=== PATIENT | female | born 1985 | race Caucasian/White ===

== ENCOUNTER 2017-07-09 20:13 | Inpatient (IN) | payer OTHER ==
[2017-07-09] VITALS (7 sets, daily range): BP systolic 118–143; BP diastolic 68–77; PULSE 83–98; TEMP 97.8–97.9
[~2017-07-09] VITALS: Ht 170.2 cm; Wt 64.5 kg
[~2017-07-09 20:13] MED LIST: MOTRIN 600600 MG/TAB PO; PERCOCET 325 MG1 TA2 PO; PRENATAL MVI PO
[2017-07-09 22:15] LABS: BASO % 0.2 % (0.0-2.0); EOS % 0.2 % (0-4.0); GRAN # 9.1 (1.4-6.5); GRAN % 77.6 % (42.2-75.2); HEMOGLOBIN 12.2 g/dl (12.5-16.0); LYMPH # 1.6 (1.2-3.4); LYMPH % 13.6 % (20.0-51.0); MEAN CELL VOLUME 88 fl (80.0-100.0); MEAN CORPUSCULAR HEMOGLOBIN 32 pg (27.0-31.0); MEAN CORPUSCULAR HGB CONC 36 g/dl (33.0-37.0); MONO # 0.9 (0.1-0.6); MONO % 7.9 % (1.7-9.3); PLATELET COUNT 167 K/mm3 (130-400); RED BLOOD COUNT 3.87 M/mm3 (4.10-5.30); REDCELL DISTRIBUTION WIDTH-CV 12.9 % (11.5-14.5)
[2017-07-09 22:16] LABS: HEMATOCRIT 34.1 % (37.0-47.0)
[2017-07-10 00:33] VITALS: BP 115/65; PULSE 85; TEMP 98.5
[2017-07-10 05:45] VITALS: BP 114/72; PULSE 101; TEMP 97.9
[2017-07-10 06:56] LABS: HEMATOCRIT 28.9 % (37.0-47.0); HEMOGLOBIN 9.9 g/dl (12.5-16.0)
[2017-07-10 08:30] VITALS: BP 112/66; PULSE 102; TEMP 97.8
[2017-07-10 12:25] VITALS: BP 110/62; PULSE 96; TEMP 98
[2017-07-10 17:00] VITALS: BP 105/63; PULSE 98; TEMP 98.5
[2017-07-10 21:45] VITALS: BP 115/75; PULSE 100; TEMP 98.9
[2017-07-11 07:30] VITALS: BP 117/70; PULSE 82
[2017-07-11] MEDS ORDERED: IBU600 MG PO (09:17)
== END 2017-07-11 12:40 | disposition home or self-care (01) | DRG 775 ==
LOC: LDRO 20:13 → LDR 21:10 → OB 07-10 01:00
PROVIDERS: Obstetrics & Gynecology
PROC: 10E0XZZ Delivery of Products of Conception, External Approach (ICD-10-PCS; principal; 2017-07-09)
PROC: 0KQM0ZZ Repair Perineum Muscle, Open Approach (ICD-10-PCS; 2017-07-09)
DX: O34.211 Maternal care for low transverse scar from previous cesarean delivery (principal); Z3A.38 38 weeks gestation of pregnancy; Z37.0 Single live birth; O70.1 Second degree perineal laceration during delivery; Z23 Encounter for immunization
CPT/HCPCS: J2590; J7120

== ENCOUNTER 2020-01-13 03:48 | Inpatient (IN) | payer OTHER ==
[~2020-01-13] VITALS: Ht 172.7 cm; Wt 69.1 kg
[2020-01-13] VITALS (16 sets, daily range): BP systolic 111–154; BP diastolic 64–89; PULSE 71–96; TEMP 97.8–98.9
[~2020-01-13 03:48] MED LIST changes: +IBU600 MG PO
--- NOTE | 2020-01-13 03:55 | NUR ---
Pt arrived on unit ambulatory and with complaints of contractions every 6-10mins with a history of fast labor. Pt denies any leaking of fluid or vaginal bleeding and reports normal movement. EFM and toco monitors started. SVE by this RN . Vital signs WNL. Information reviewed with Dr. Bhardwaj. Orders for labor admission received. Plan of care reviewed with pt and at the bedside.
[2020-01-13 05:36] LABS: BASO % 0.1 % (0.0-2.0); EOS % 0.5 % (0-4.0); GRAN % 71.2 % (42.2-75.2); HEMOGLOBIN 12.4 g/dl (12.5-16.0); LYMPH # 1.7 (1.2-3.4); LYMPH % 19.6 % (20.0-51.0); MEAN CELL VOLUME 92 fl (80.0-100.0); MEAN CORPUSCULAR HEMOGLOBIN 31 pg (27.0-31.0); MEAN CORPUSCULAR HGB CONC 34 g/dl (33.0-37.0); MEAN PLATELET VOLUME 12.3 fl (7.4-10.4); MONO # 0.7 (0.1-0.6); PLATELET COUNT 144 K/mm3 (130-400); RED BLOOD COUNT 3.95 M/mm3 (4.10-5.30); REDCELL DISTRIBUTION WIDTH-CV 12.8 % (11.5-14.5)
[2020-01-13 05:40] LABS: HEMATOCRIT 36.2 % (37.0-47.0)
--- NOTE | 2020-01-13 06:20 | NUR ---
This RN received report from Dave. Patient updated on plan of care and has no needs at this time. 0838: Patient off monitor to ambulate at this time. 0712: Patient back on monitor. 0720: Dr. Gil at bedside assessing patient and FHR strip. SVE per physician /-1 and AROM at this time with clear fluid noted. 0753: Patient off monitor to void. 0845: Dr. Gil at bedside and SVE per physician /-1. Patient off monitor to void. 0854: Patient on toilet and feeling light headed and a lot of pressure. Patient assisted back to bed. Dr. Gil at nurses station and notified. 0856: SVE-/+1 and patient prepped for vaginal delivery. 0859: Pericare done and patient begins to push per Dr. Gils orders. 0901: Spontaneous vaginal delivery of viable male-head followed by body. to patients abdomen and E.Channing RN assumes care of infant. Cord clamped by physician and cut by FOB. Cord blood obtained. 0903: Spontaneous delivery of placenta and pitocin bolus started at 333mU. Dr. Gil injects lidocaine and repairs laceration. Fundal massage done/firm/bleeding WNL. Patient repositioned, ice pack to perineum, and plan of care discussed.
--- NOTE | 2020-01-13 11:40 | NUR ---
Patient ambulates to bathroom with standby assist. Patient voids, pericare done, new gown/underwear/pad on. Patient becomes light headed and assisted into wheel chair. Patient to new room and assisted into bed. Oriented to new room and plan of care discussed.
[2020-01-14 00:30] VITALS: BP 108/64; PULSE 90; TEMP 98.7
[2020-01-14 08:13] VITALS: BP 104/68; PULSE 68; TEMP 98.1
--- NOTE | 2020-01-14 09:31 | NUR ---
Initial visit; Family thanked Business Operations Coordinator for offering congratulations and God's blessings for the of their son. Business Operations Coordinator thanked family for choosing [facility].
[2020-01-14 15:30] VITALS: BP 102/68; PULSE 76; TEMP 98.1
== END 2020-01-14 19:00 | disposition home or self-care (01) | DRG 807 ==
LOC: LDRO 03:48 → LDR 04:54 → OB 04:54
PROVIDERS: Obstetrics & Gynecology; ADMIT Obstetrics & Gynecology
PROC: 10E0XZZ Delivery of Products of Conception, External Approach (ICD-10-PCS; principal; 2020-01-13)
PROC: 0KQM0ZZ Repair Perineum Muscle, Open Approach (ICD-10-PCS; 2020-01-13)
PROC: 10907ZC Drainage of Amniotic Fluid, Therapeutic from Products of Conception, Via Natural or Artificial Opening (ICD-10-PCS; 2020-01-13)
DX: O99.62 Diseases of the digestive system complicating childbirth (principal); Z37.0 Single live birth; K90.0 Celiac disease; O70.1 Second degree perineal laceration during delivery; O34.211 Maternal care for low transverse scar from previous cesarean delivery; Z3A.39 39 weeks gestation of pregnancy
CPT/HCPCS: J2590; J7120